=== PATIENT | female | born 1945 | race Caucasian/White ===

== ENCOUNTER 2016-12-22 06:31 | Day surgery (SDC) | payer OTHER ==
[2016-12-12 12:11] VITALS: BMI 29.0
[2016-12-22] MEDS: traMADol HCL 50 MG TABLET PO SCH ×3 (01:00→19:18)
[~2016-12-22 06:31] MED LIST: CEFAZOLIN 1 GM/D5W 50 ML IVPB ONE; CELECOXIB 200 MG CAPSULE PO ONE; GABAPENTIN 300 MG CAPSULE (FP) PO ONE; ROPIVICAINE 0.2%/MORPH PF/KETOROLAC - 51ML DISP.SYRINGE IA ONE; TRANEXAMIC ACID 1000 MG/10 ML VIAL IVPUSH ONE; oxyCODONE HCL 10 MG SUSTAINED ACTING TABLET PO ONE
[2016-12-22] MEDS ORDERED: PANTOPRAZOLE 40 MG TABLET (FP) PO ONE (06:33)
[2016-12-22] MEDS ORDERED: TRANEXAMIC ACID 1000 MG/10 ML VIAL IVPUSH ONE (06:44)
[2016-12-22] MEDS ORDERED: CELECOXIB 200 MG CAPSULE PO ONE (06:44)
[2016-12-22] MEDS ORDERED: oxyCODONE HCL 10 MG SUSTAINED ACTING TABLET PO ONE (06:44)
[2016-12-22] MEDS ORDERED: ROPIVICAINE 0.2%/MORPH PF/KETOROLAC - 51ML DISP.SYRINGE IA ONE ×2 (06:44→07:10)
[2016-12-22] MEDS ORDERED: GABAPENTIN 300 MG CAPSULE (FP) PO ONE (06:44)
[2016-12-22] MEDS ORDERED: CEFAZOLIN 1 GM/D5W 50 ML IVPB ONE (06:44)
[2016-12-22] MEDS ORDERED: MIDAZOLAM HCL 2 MG/2 ML SINGLE DOSE VIAL ONE (06:45)
[2016-12-22] MEDS ORDERED: BUPIVACAINE HCL/PF (5 MG/ML) 30 ML VIAL IJ ONE (06:45)
[2016-12-22] MEDS ORDERED: DEXAMETHASONE SOD PHOSPHATE/PF 10 MG/ML SDV ONE (06:45)
[2016-12-22] MEDS ORDERED: SODIUM CHLORIDE 0.9% P/F 10 ML VIAL IJ ONE (07:01)
[2016-12-22] MEDS ORDERED: TRANEXAMIC ACID 1000 MG/10 ML VIAL ONE ×2 (07:09→08:33)
[2016-12-22] MEDS ORDERED: VANCOMYCIN 1,000 MG VIAL (RESTRICTED TO ID ONLY) ONE (07:09)
[2016-12-22] MEDS ORDERED: ceFAZolin SODIUM 1 GM VIAL ONE ×2 (07:09→08:33)
[2016-12-22] MEDS ORDERED: oxyCODONE HCL 10 MG SUSTAINED ACTING TABLET ONE (07:15)
[2016-12-22] MEDS ORDERED: GABAPENTIN 300 MG CAPSULE (FP) ONE (07:15)
[2016-12-22] MEDS ORDERED: CELECOXIB 200 MG CAPSULE ONE (07:16)
[2016-12-22] MEDS ORDERED: BUPIVACAINE HCL/PF 0.5% (5MG/ML) 10 ML VIAL ONE (07:23)
--- NOTE | 2016-12-22 08:17 | HP ---
Admitting History and Physical - Admission Chief Complaint: right knee medial compartment pain - dx'ed with OA, failed conservative management. Indicated for medial UKA with Richard. Pt states 100% of pain is medially. There is no pain at all in the lateral and patellofemoral compartments. History Source: Patient, Family Member, Medical Record Limitations to Obtaining History: No Limitations - Past Medical History Hepatobiliary: Yes: Cholecystitis - Past Surgical History Past Surgical History: Yes: Cholecystectomy, - Smoking History Smoking history: Never smoked Have you smoked in the past 12 months: No - Alcohol/Substance Use Hx Alcohol Use: No Home Medications - Allergies Allergies/Adverse Reactions: Allergies Allergy/AdvReac Type Severity Reaction Status Date / Time No Known Allergies Allergy Verified 12/12/16 11:56 - Home Medications Home Medications: Ambulatory Orders Meloxicam [Mobic (Nf) -] 15 mg PO DAILY PRN 12/12/16 Metoprolol Succinate [Toprol Xl -] 50 mg PO DAILY 12/12/16 Physical Examination Vital Signs: Vital Signs Temperature 98 F 12/22/16 06:57 Pulse Rate 65 12/22/16 06:57 Respiratory Rate 18 12/22/16 06:57 Blood Pressure 167/80 12/22/16 06:57 O2 Sat by Pulse Oximetry (%) Constitutional: Yes: Well Nourished, No Distress, Calm Eyes: Yes: WNL, Conjunctiva Clear, EOM Intact HENT: Yes: WNL, Atraumatic, Normocephalic Neck: Yes: WNL, Supple Cardiovascular: Yes: WNL, Regular Rate and Rhythm Respiratory: Yes: WNL, Regular Gastrointestinal: Yes: WNL, Soft ...Rectal Exam: Yes: Deferred Musculoskeletal: Yes: Joint Stiffness, Joint Swelling Extremities: Yes: WNL Edema: No Peripheral Pulses WNL: Yes Integumentary: Yes: WNL Neurological: Yes: WNL, Alert, Oriented ...Motor Strength: WNL Labs: reviewed in chart Imaging - Results X-ray: Image Reviewed Cat Scan: Report Reviewed, Image Reviewed Problem List - Problems (1) Osteoarthritis of right knee Code(s): M17.11 - UNILATERAL PRIMARY OSTEOARTHRITIS, RIGHT KNEE Qualifiers: Osteoarthritis type: primary Qualified Code(s): M17.11 - Unilateral primary osteoarthritis, right knee Assessment/Plan 71yo female with right knee medial compartment pain only - dx'ed with OA, failed conservative management. Indicated for medial UKA with Richard.
[2016-12-22] MEDS ORDERED: DEXAMETHASONE SOD PHOSPHATE 4 MG/1 ML VIAL ONE (08:33)
[2016-12-22] MEDS ORDERED: ONDANSETRON 4 MG/2 ML VIAL ONE (08:33)
[2016-12-22] MEDS ORDERED: ONDANSETRON 4 MG/2 ML VIAL IVPUSH PRN (09:57)
[2016-12-22] MEDS ORDERED: oxyCODONE HCL 5 MG TABLET PO PRN ×2 (09:58)
[2016-12-22] MEDS ORDERED: GABAPENTIN 300 MG CAPSULE (FP) PO SCH (10:00)
[2016-12-22] MEDS ORDERED: LACTATED RINGERS SOLUTION 1,000 ML IV SCH ×2 (10:00→11:45)
--- NOTE | 2016-12-22 11:31 | OP ---
Operative Note - Note: Operative Date: 12/22/16 Pre-Operative Diagnosis: right knee medial compartment OA Operation: R knee MAKOplasty partial knee replacement Post-Operative Diagnosis: Same as Pre-op Surgeon: Winston Godinez Olericulturist: Anne Blood Anesthesia: Spinal Estimated Blood Loss (mls): 50
[2016-12-22] MEDS ORDERED: ONDANSETRON 4 MG/2 ML VIAL IVPB PRN (11:34)
[2016-12-22] MEDS ORDERED: MAG HYDROX/AL HYDROX/SIMETH 30 ML UNIT-DOSE CUP PO PRN (11:34)
[2016-12-22] MEDS: ACETAMINOPHEN 325 MG TABLET (FP) PO SCH ×2 (12:03→19:00)
[2016-12-22] MEDS: KETOROLAC TROMETHAMINE 30 MG/1 ML VIAL IVPUSH SCH ×2 (12:03→23:40)
--- NOTE | 2016-12-22 12:05 | SURG ---
Surgery Verse Writer Note Verse Writer: Anne Blood PA-C Date of Service: 12/22/16 Diagnosis: right knee medial compartment OA Procedure: R knee MAKOplasty partial knee replacement I was present for the entirety of the operative procedure. For further detail, please refer to operative report. Visit type - Case Type Case Type: Scheduled Admission - Emergency Emergency Visit: No - New patient This patient is new to me today: Yes Date on this admission: 12/22/16 - Critical Care Critical Care patient: No
--- NOTE | 2016-12-22 12:54 | SPEC ---
DATE OF OPERATION: 12/22/2016 PREOPERATIVE DIAGNOSIS: Right knee medial compartment osteoarthritis. POSTOPERATIVE DIAGNOSIS: Right knee medial compartment osteoarthritis. PROCEDURE: Right knee MAKOplasty partial knee replacement. ATTENDING SURGEON: Summer Eisenberg MD DATA SCIENCE AND IOT MANAGER: KIMI Kim ANESTHESIA: Spinal plus sedation. ESTIMATED BLOOD LOSS: 50 mL. COMPLICATIONS: None. SPECIMENS: None. DISPOSITION: The patient was transferred to the PACU in stable condition. INDICATIONS: This is a 71-year-old female who presented to the office complaining of right knee pain. She was seen and examined by Dr. Eisenberg and diagnosed with right knee osteoarthritis. She was initially treated with conservative management including medications, injections, and physical therapy, but she continued to have severe pain. All of her pain was localized to the medial compartment of the knee. She had no pain whatsoever in the lateral and patellofemoral compartments even though her x-ray did show evidence of some lateral compartment degenerative changes. The x-rays were shown to the patient and her family and we discussed partial versus total knee replacement. Because all of her pain was medial and she had no lateral-sided pain even though there were changes on the x-ray consistent with arthritis, we elected to proceed with a partial knee replacement of a right knee medial MAKOplasty. The risks, benefits, and alternatives to the surgery were explained to the patient in great detail and she elected to proceed with the surgery. On the day of surgery the patient was taken to the operating room and placed on the OR table. Spinal anesthesia was administered by the anesthesiologist. The patient was then positioned supine on the table and all bony prominences were padded. A nonsterile tourniquet was placed on the proximal thigh of the operative leg. The knee was then prepped and draped in the usual sterile fashion and intravenous antibiotics were given for infection prophylaxis. A surgical time out was then performed with the team and the patient's identify, procedure, side, availability of implants and the administration of antibiotics was confirmed. With the knee flexed, an 8-cm incision was made just slightly medial to the midline and carried down through the subcutaneous fat to the underlying retinaculum. Electrocautery was used to achieve hemostasis. A limited medial parapatellar arthrotomy was performed. This was followed by a subperiosteal dissection of the tissue off the proximal medial tibia. A portion of fat pad was removed from under the patellar tendon to improve visualization and a small portion of fat was excised off the distal supracondylar femur. The knee was then flexed further and the anterior horn of the medial meniscus was released. Grade 4 changes were noted diffusely throughout the medial compartment. The lateral compartment appeared to be in good condition. Femoral and tibial checkpoints were then placed in the appropriate location using a mallet. Two parallel bicortical self-drilling pins were placed in the proximal tibia after making stab incisions and bluntly dissecting down to bone. These were positioned approximately 10-cm distal to the tibial tubercle. Two pins were then placed in the proximal femur using the same technique. These were located approximately 10-cm proximal to the superior pole of the patella. The Lim[employer] navigation arrays were then attached to both the femoral and tibial pins and the lower extremity was then registered to the robotic navigation device using various joint movements, as well as inputting approximately 50 checkpoints. The knee was then taken through a full range of motion with a corrective valgus force applied. Alignment in varus/valgus was measured at 0, 30, 60, 90 and 120 degrees of flexion to determine soft tissue balance in all of these positions. The navigation device showed appropriate tracking of the virtual components on the screen, as well as a graphic representation of the soft tissue balance. The components were repositioned virtually using the software until optimal soft tissue balance was achieved. Once this was accomplished, the final plan was saved and sent to the robot. Retractors were then placed around the distal femur. The robot was brought into the sterile field and registered with the navigation device. The robotic arm with a bi was then used to remove the appropriate amount of bone from the femur and tibia as per the saved software plan. The knee was then irrigated. Trial components were placed and the knee was taken through a full range of motion to assess soft tissue balance and alignment. The tracking and range of motion were found to be excellent and the soft tissue balance was optimal and according to plan. All trial components were then removed and an Esmarch bandage was used to exsanguinate the leg. The tourniquet was inflated in preparation for cementing. All bony surfaces were cleaned with pulsatile lavage and dried. Bone cement was then prepared on the back table and final components were cemented in place in the usual fashion. Extruded cement was removed. Once the cement had hardened, the knee was taken through a full range of motion to assess stability, balance and patellar tracking. These were found to be optimal. The trial polyethylene was exchanged for a final implant. Medial and inferior osteophytes were debrided off the patella (patelloplasty). The navigation arrays and Sylvia pins were removed from the femur and tibia. All wounds were then thoroughly irrigated with normal saline. A periarticular injection was used to locally infiltrate the capsular tissues surrounding the implant and prosthesis. A 1 Vicryl and 0 V-Lesley 180 barbed sutures were used to close the arthrotomy. 2-0 Vicryl sutures were used in the subcutaneous tissues. The skin was closed using both 3-0 V-Lesley 90 suture in a running subcuticular fashion and Dermabond skin adhesive. 4-0 undyed Vicryl and Dermabond skin adhesive was used to close the stab incisions made for the navigation pins. Once this was completed, sterile Aquacel dressings were applied to each incision site. A compressive dressing was applied. The tourniquet was then deflated and the patient was awakened and went to the PACU in stable condition. SUMMER EISENBERG M.D. [id number]
[2016-12-22] MEDS: CEFAZOLIN 1 GM/D5W 50 ML IVPB SCH (16:04)
[2016-12-22] MEDS: oxyCODONE HCL 10 MG SUSTAINED ACTING TABLET PO SCH (21:17)
[2016-12-22] MEDS: GABAPENTIN 300 MG CAPSULE (FP) PO SCH (21:17)
[2016-12-22] MEDS: SENNOSIDES/DOCUSATE COMBO (SENNA PLUS) TABLET (UD) PO SCH (21:17)
[2016-12-22] MEDS: CELECOXIB 200 MG CAPSULE PO SCH (21:18)
[2016-12-22] MEDS: ASCORBIC ACID 500 MG TABLET (FP) PO SCH (21:18)
[2016-12-23] MEDS: CEFAZOLIN 1 GM/D5W 50 ML IVPB SCH (00:55)
[2016-12-23] MEDS: ACETAMINOPHEN 325 MG TABLET (FP) PO SCH ×3 (06:16→07:49)
[2016-12-23] MEDS: traMADol HCL 50 MG TABLET PO SCH ×2 (06:16)
[2016-12-23] MEDS: KETOROLAC TROMETHAMINE 30 MG/1 ML VIAL IVPUSH SCH ×2 (06:18→07:49)
[2016-12-23 06:35] VITALS: BP 132/58; PULSE 66; TEMP 97.9
[2016-12-23] MEDS: oxyCODONE HCL 10 MG SUSTAINED ACTING TABLET PO SCH ×2 (07:46→09:18)
[2016-12-23] MEDS ORDERED: ASPIRIN 325 MG TABLET PO SCH (08:00)
[2016-12-23 08:17] LABS: MCH 29.8 pg (25.7-33.7); MCHC 33.8 g/dl (32.0-36.0); MEAN PLT VOLUME 7.8 fl (7.5-11.1); PLATELET COUNT 261 K/MM3 (134-434); RDW 12.3 % (11.6-15.6); WHITE BLOOD COUNT 12.7 K/mm3 (4.0-10.8)
--- NOTE | 2016-12-23 08:58 | PN ---
Progress Note (short form) - Note Progress Note: Anesthesia post op note, S/P Right knee arthroplasty. Pat seen and examined.VSS. Pain well controlled. No apparent post anesthesia complications. Signed off.
[2016-12-23] MEDS: ASCORBIC ACID 500 MG TABLET (FP) PO SCH (09:15)
[2016-12-23] MEDS: GABAPENTIN 300 MG CAPSULE (FP) PO SCH (09:15)
[2016-12-23] MEDS: CELECOXIB 200 MG CAPSULE PO SCH (09:15)
[2016-12-23] MEDS: SENNOSIDES/DOCUSATE COMBO (SENNA PLUS) TABLET (UD) PO SCH (09:17)
[2016-12-23] MEDS ORDERED: PANTOPRAZOLE 40 MG TABLET (FP) PO SCH (10:00)
[2016-12-23] MEDS ORDERED: METOPROLOL SUCCINATE 50 MG TAB.SR.24H (FP) PO SCH (10:00)
[2016-12-23] MEDS ORDERED: MULTIVITAMINS (DAILY MVI) TABLET (FP) PO SCH (10:00)
[2016-12-23] MEDS ORDERED: traMADol HCL 50 MG TABLET PO SCH (12:00)
[2016-12-23] MEDS ORDERED: ACETAMINOPHEN 325 MG TABLET (FP) PO SCH ×2 (12:00→12:15)
[2016-12-23] MEDS ORDERED: MAG HYDROX/AL HYDROX/SIMETH 30 ML UNIT-DOSE CUP PO PRN (12:11)
[2016-12-23] MEDS ORDERED: oxyCODONE HCL 5 MG TABLET PO PRN ×2 (12:12)
[2016-12-23] MEDS ORDERED: ONDANSETRON 4 MG/2 ML VIAL IVPB PRN (12:12)
--- NOTE | 2016-12-23 12:18 | PN ---
Progress Note (short form) - Note Progress Note: Pt seen and examined. Doing Well. AVSS Selected Entries 12/23/16 06:33 Temperature 97.9 F Pulse Rate 66 Respiratory 18 Rate Blood Pressure 132/58 O2 Sat by Pulse 98 Oximetry (%) Oxygen Delivery Room Air Method Laboratory Tests 12/23/16 07:30 WBC 12.7 H Hgb 13.1 Hct 38.7 Plt Count 261 Gen: NAD RLE: c/d/i, NVID A/P s/p M knee medial UKA 1. Plan for d/c home today. Problem List - Problems (1) Osteoarthritis of right knee Code(s): M17.11 - UNILATERAL PRIMARY OSTEOARTHRITIS, RIGHT KNEE Qualifiers: Osteoarthritis type: primary Qualified Code(s): M17.11 - Unilateral primary osteoarthritis, right knee
--- NOTE | 2016-12-23 12:23 | DS ---
Physical Examination Vital Signs: Vital Signs Temperature 97.9 F 12/23/16 06:33 Pulse Rate 66 12/23/16 06:33 Respiratory Rate 18 12/23/16 06:33 Blood Pressure 132/58 12/23/16 06:33 O2 Sat by Pulse Oximetry (%) 98 12/23/16 06:33 Labs: CBC, BMP 12/23/16 07:30 Discharge Summary Reason For Visit: RIGHT KNEE OSTEOARTHRITIS Current Active Problems Osteoarthritis of right knee (Acute) Procedures: Principal: right knee medial MAKOplasty Hospital Course: Admitted for elective surgery. Procedure performed without complications. Pt received postoperative antibiotic prophylaxis and DVT ppx. Ambulated with physical therapy. Stable for discharge home with outpatient followup. Condition: Stable - Instructions Diet, Activity, Other Instructions: Dr. Godinez - Knee Replacement Instructions Keep the Aquacel dressing on until removed by Dr. Godinez in 10-14 days - it is antibacterial and waterproof and you can shower with it on. Call the office for a follow-up appointment with Dr. Godinez in 10-14 days. Take one Aspirin 325mg daily for 6 weeks to prevent blood clots in your legs. Take one Pantoprazole 40mg daily for 6 weeks to protect against heartburn and ulcers. Resume taking Meloxicam 15mg daily to reduce swelling and inflammation. Take a stool softener, multivitamin, and extra vitamin C supplement daily. For pain: *Mild pain (1-3/10): Take 1 Tramadol tablet every 4 hours as needed. Moderate pain (4-6/10): Take 1 Tramadol tablet and 1 Percocet tablet every 4 hours as needed. Severe pain (7-10/10): Take 1 Tramadol tablet and 2 Percocet tablets every 4 hours as needed. Activity: You can put as much weight on the operative leg as you want. Right after you get home, there will be a physical therapist coming to your house to help you walk around and bend/straighten your knee. After your follow-up appointment, you will be sent for more intensive outpatient physical therapy which will include machines and equipment that the home therapist cannot bring to your house. Always use a walker or cane for balance and to prevent falls. Disposition: [facility]/HOME HEALTH CARE - Home Medications Comprehensive Discharge Medication List: Ambulatory Orders Meloxicam [Mobic (Nf) -] 15 mg PO DAILY PRN 12/12/16 Metoprolol Succinate [Toprol XL -] 50 mg PO DAILY 12/12/16 Ascorbic Acid [Vitamin C -] 500 mg PO BID tablet 12/23/16 Aspirin [ASA -] 325 mg PO DAILY@0800 tablet 12/23/16 Multivitamins [Multivit ([facility] Formulary)] 1 tab PO DAILY tab 12/23/16 Oxycodone HCl/Acetaminophen [Percocet 5-325 mg Tablet] 1 - 2 tab PO Q4H PRN #90 tablet MDD 10 12/23/16 Pantoprazole Sodium [Protonix -] 40 mg PO DAILY #40 tab 12/23/16 Sennosides/Docusate Sodium [Pericolace -] 2 tablet PO BID tablet 12/23/16 Tramadol HCl [Ultram -] 50 mg PO Q4H PRN #60 tablet MDD 6 12/23/16
[2016-12-23] MEDS ORDERED: ASCORBIC ACID 500 MG TABLET (FP) PO SCH (22:00)
[2016-12-23] MEDS ORDERED: GABAPENTIN 300 MG CAPSULE (FP) PO SCH (22:00)
[2016-12-23] MEDS ORDERED: SENNOSIDES/DOCUSATE COMBO (SENNA PLUS) TABLET (UD) PO SCH (22:00)
[2016-12-23] MEDS ORDERED: oxyCODONE HCL 10 MG SUSTAINED ACTING TABLET PO SCH (22:00)
[2016-12-23] MEDS ORDERED: CELECOXIB 200 MG CAPSULE PO SCH (22:00)
[2016-12-24] MEDS ORDERED: ASPIRIN 325 MG TABLET PO SCH (08:00)
== END 2016-12-23 13:15 | disposition home health service (06) ==
LOC: FM/S 06:31 → FASUSAT 06:31 → EDSTATUS 08:00 → FM/S 13:05 → FASUSAT 12-23 13:15
PROVIDERS: ATTEND Student in an Organized Health Care Education/Training Program
PROC: 8E0YXBZ Computer Assisted Procedure of Lower Extremity (ICD-10-PCS; 2016-12-22)
PROC: 8E0Y0CZ Robotic Assisted Procedure of Lower Extremity, Open Approach (ICD-10-PCS; 2016-12-22)
PROC: 0SRC0L9 Replacement of Right Knee Joint with Medial Unicondylar Synthetic Substitute, Cemented, Open Approach (ICD-10-PCS; principal; 2016-12-22 09:03)
DX: M17.11 Unilateral primary osteoarthritis, right knee (principal)
CPT/HCPCS: 20985; 27446; C1776; S2900; 36415; 73560-TC-RT; 85027; 94010; 94760; 97116-GP; 97162-GP